=== PATIENT | female | born 1975 | race Caucasian/White ===

== ENCOUNTER 2020-08-19 16:31 | Emergency (ER) | payer BC, SELFPAY ==
[2020-08-19 16:42] VITALS: BP 174/114; PULSE 69; RESP 18; TEMP 36.6; O2SAT 100; BMI 36.6
--- NOTE | 2020-08-19 16:55 | W.ED.SOB ---
Documented by User: Pérez Jacques DO 08/20/20 07:14 HPI - SOB/Dyspnea General: Chief Complaint: Shortness of Breath/Dyspnea Stated Complaint: Sob/ ABD pressure Time Seen by Provider: 08/19/20 16:50 History of Present Illness: HPI Narrative: 45-year-old female complains gastric and right upper quadrant abdominal pain that at times makes it feel difficult or painful to take a deep breath and she feels somewhat short of breath. States it begins after she eats usually resolves within an hour or so she does get acholic stools but no vomiting or diarrhea no hematochezia melena hematemesis or coffee-ground emesis. She is taking omeprazole and occasional take some [id number] Tums with no significant relief of her symptoms. She not had any fever sweats or chills no productive cough. No melanic stools. MD elicited complaint: shortness of breath and cough Onset (ago): week(s) Timing: intermittent Severity: moderate Exacerbating factors: other (Eating) Relieving factors: nothing Associated symptoms: Reports abdominal pain and nausea; Deny chest congestion, chest pain, cough, diaphoresis, dizziness, extremity pain, fever(s), hemoptysis, lightheadedness, myalgias, orthopnea, palpitations, paresthesias, polydipsia, polyuria, rash, sense of impending doom, syncope or vomiting Review of Systems Const: Denies: fever(s) or diaphoresis ENMT: Denies: throat pain, ear or mastoid pain, nasal discharge or nasal congestion Card: Denies: chest pain, palpitations, lightheadedness, syncope or orthopnea Resp: Denies: hemoptysis or chest congestion GI: Reports: abdominal pain and nausea; Denies: vomiting : Denies: flank pain, difficulty voiding, dysuria, urinary frequency or urinary urgency Musc: Denies: extremity pain Skin/Breast: Denies: rash or pruritus Neuro: Denies: dizziness Endo: Denies: polyuria or polydipsia PFSH ED PFSH: Surgical History (Updated 08/19/20 @ 17:04 by Pérez Jacques DO) History of cholecystectomy Physical Exam Const: COMMON NORMALS: no acute distress GENERAL APPEARANCE: cooperative and comfortable ORIENTATION/CONSCIOUSNESS: Yes awake, Yes oriented to person, Yes oriented to place and Yes oriented to time HENMT: COMMON NORMALS: normocephalic, atraumatic and hearing grossly normal bilaterally HEAD & SCALP: normocephalic and atraumatic Neck/C-Spine: COMMON NORMALS: no JVD Resp: COMMON NORMALS: normal respiratory effort, No retractions, No use of accessory muscles and clear to auscultation bilaterally AUSCULTATION: clear to auscultation bilaterally Cardio: COMMON NORMALS: no JVD, regular rate, regular rhythm and No murmurs present (Cardio) RATE: regular rate RHYTHM: regular rhythm GI: COMMON NORMALS: Soft to palpation and No hepatosplenomegaly present AUSCULTATION: Yes normoactive bowel sounds PALPATION: Yes Soft to palpation, No Tenderness to palpation present (GI), No Guarding due to palpation present (GI) and Yes No hepatosplenomegaly present Extremity: COMMON NORMALS: normal to inspection, capillary refill normal, no clubbing, cyanosis or edema, no calf tenderness and no pedal edema Neuro: SENSORIUM/ORIENTATION: Yes oriented to person, Yes oriented to place and Yes oriented to time Skin: COMMON NORMALS: no rashes or lesions noted GENERAL SKIN EXAM: no rashes or lesions noted Course Vital Signs: Vital signs: Vital Signs Temperature 97.9 F 08/19/20 16:42 Pulse Rate 60 08/19/20 20:52 Respiratory Rate 12 08/19/20 20:52 Blood Pressure 143/89 08/19/20 20:52 Pulse Oximetry 100 08/19/20 20:52 MDM - SOB/Dyspnea MDM Narrative: Medical decision making narrative: Care turned over to Dr. Ward at change of shift see his note for final diagnosis and disposition Lab Data: Labs: Lab Results 08/19/20 08/19/20 08/19/20 Range/Units 17:30 17:30 17:30 WBC 9.0 (4.0-10.0) 10^3/ uL RBC 4.10 (4.1-5.3) 10^6/u L Hgb 11.8 (11.5-15.3) g/dL Hct 35.7 L (37.0-47.0) % MCV 87.1 (81-99) fL MCH 28.8 (28.0-34.0) pg MCHC 33.1 (30.0-36.0) g/dL RDW 16.3 H (12.1-15.1) % Plt Count 297 (130-400) 10^3/c mm MPV 12.5 H (7.4-10.4) fL Neut % (Auto) 53.6 % Lymph % (Auto) 37.5 % [place] % (Auto) 6.0 % Eos % (Auto) 1.9 % Baso % (Auto) 0.7 % Neut # (Auto) 4.84 (1.8-7.7) 10^3/u L Lymph # (Auto) 3.4 (0.8-4.8) 10^3/u L [place] # (Auto) 0.5 (0.2-0.9) 10^3/u L Eos # (Auto) 0.2 (0.0-0.8) 10^3/u L Baso # (Auto) 0.1 (0.0-0.1) 10^3/u L Nucleated RBC % (a uto) 0 % Nucleated RBCs # 0.0 /100WBC Sodium 138 (136-145) mmol/L Potassium 3.4 L (3.5-5.1) mmol/L Chloride 106 (98-107) mmol/L Carbon Dioxide 17 L (22-29) mmol/L Anion Gap 18.4 (5-19) BUN 13 (6-20) mg/dL Creatinine 0.7 (0.5-0.9) mg/dL GFR Calculation 90.5 (90-130) mL/min Glucose 86 (65-115) mg/dL Calculated Osmolal ity 285 (285-295) mOsm/k g Calcium 9.4 (8.5-10.5) mg/dL Total Bilirubin 0.2 (0.15-1.2) mg/dL AST 16 (0-32) U/L ALT 31 (0-33) U/L Alkaline Phosphata se 75 (35-105) IU/L Troponin T Baselin e 6 (0-10) ng/L Troponin T 120 Min [place] (0-10) ng/L Delta Troponin T (0-10) ABS# Total Protein 6.7 (6.6-8.7) g/dL Albumin 3.9 (3.5-5.2) g/dL Globulin 2.8 (1.3-4.6) g/dL Lipase 25 (13-60) U/L Urine Color (Yellow) Urine Appearance (CLEAR) Urine pH (5-7) Ur Specific Gravit y (1.005-1.030) Urine Protein (Negative) Urine Glucose (UA) (Normal) Urine Ketones (Negative) Urine Blood (Negative) Urine Nitrate (Negative) Urine Bilirubin (Negative) Urine Urobilinogen (Negative) mg/dL Ur Leukocyte Nancie ase (Negative) Urine RBC (0-2) /hpf Urine WBC (0-5) /hpf Ur Squamous Epith Cells (0-5) /hpf Amorphous Sediment Urine Bacteria (NONE) /hpf 08/19/20 08/19/20 Range/Units 17:35 19:30 WBC (4.0-10.0) 10^3/ uL RBC (4.1-5.3) 10^6/u L Hgb (11.5-15.3) g/dL Hct (37.0-47.0) % MCV (81-99) fL MCH (28.0-34.0) pg MCHC (30.0-36.0) g/dL RDW (12.1-15.1) % Plt Count (130-400) 10^3/c mm MPV (7.4-10.4) fL Neut % (Auto) % Lymph % (Auto) % [place] % (Auto) % Eos % (Auto) % Baso % (Auto) % Neut # (Auto) (1.8-7.7) 10^3/u L Lymph # (Auto) (0.8-4.8) 10^3/u L [place] # (Auto) (0.2-0.9) 10^3/u L Eos # (Auto) (0.0-0.8) 10^3/u L Baso # (Auto) (0.0-0.1) 10^3/u L Nucleated RBC % (a uto) % Nucleated RBCs # /100WBC Sodium (136-145) mmol/L Potassium (3.5-5.1) mmol/L Chloride (98-107) mmol/L Carbon Dioxide (22-29) mmol/L Anion Gap (5-19) BUN (6-20) mg/dL Creatinine (0.5-0.9) mg/dL GFR Calculation (90-130) mL/min Glucose (65-115) mg/dL Calculated Osmolal ity (285-295) mOsm/k g Calcium (8.5-10.5) mg/dL Total Bilirubin (0.15-1.2) mg/dL AST (0-32) U/L ALT (0-33) U/L Alkaline Phosphata se (35-105) IU/L Troponin T Baselin e (0-10) ng/L Troponin T 120 Min [place] 6.57 (0-10) ng/L Delta Troponin T 0.57 (0-10) ABS# Total Protein (6.6-8.7) g/dL Albumin (3.5-5.2) g/dL Globulin (1.3-4.6) g/dL Lipase (13-60) U/L Urine Color Yellow (Yellow) Urine Appearance Clear (CLEAR) Urine pH 5 (5-7) Ur Specific Gravit y 1.010 (1.005-1.030) Urine Protein Neg (Negative) Urine Glucose (UA) Norm (Normal) Urine Ketones 1+ H (Negative) Urine Blood 2+ H (Negative) Urine Nitrate Negative (Negative) Urine Bilirubin Neg (Negative) Urine Urobilinogen Norm (Negative) mg/dL Ur Leukocyte Nancie ase 1+ H (Negative) Urine RBC 15-25 H (0-2) /hpf Urine WBC 10-15 H (0-5) /hpf Ur Squamous Epith Cells 25-40 H (0-5) /hpf Amorphous Sediment Not Reportable Urine Bacteria 2+ H (NONE) /hpf Discharge Plan Discharge Patient Disposition: Home Clinical Impression: Gastritis Qualifiers: Gastritis type: unspecified gastritis Chronicity: unspecified Gastritis bleeding: without bleeding Qualified Code(s): K29.70 - Gastritis, unspecified, without bleeding Condition: Stable Prescriptions: New Prevacid 30 mg capsule,delayed release(DR/EC) 30 mg PO DAILY Qty: 30 RF: 0 Carafate 1 gram tablet 1 g PO Q6H 28 Days Qty: 112 RF: 0 Discharge Orders: Discharge ED (Routine); Ordered 08/19/20 Ordered By: Warren Ward Discharge Diet: Advance as tolerated Discharge Activity: Increase activity as tolerated Patient Instructions: Gastritis (ED) Activity Restrictions/Additional Instructions: Return for worsening pain despite treatment, vomiting liquids or medications, fever greater than 100, blood in the stool or vomitus, other concerning symptoms. Coding Level of Care Code ED Baggage Handling Supervisor for Chg Fwd Exam Comprehensive Documented by User: Warren Ward DO 08/20/20 00:02 HPI - SOB/Dyspnea General: Chief Complaint: Shortness of Breath/Dyspnea Stated Complaint: Sob/ ABD pressure Time Seen by Provider: 08/19/20 16:50 PFSH ED PFSH: Surgical History (Updated 08/19/20 @ 17:04 by Pérez Jacques DO) History of cholecystectomy Course Vital Signs: Vital signs: Vital Signs Temperature 97.9 F 08/19/20 16:42 Pulse Rate 60 08/19/20 20:52 Respiratory Rate 12 08/19/20 20:52 Blood Pressure 143/89 08/19/20 20:52 Pulse Oximetry 100 08/19/20 20:52 MDM - SOB/Dyspnea MDM Narrative: Medical decision making narrative: 45-year-old female checked out to me by Dr. Jacques. She presents with epigastric and right upper quadrant pain. This is an ongoing problem. Pain is improved at this point. Her white blood cell count is 9. Hemoglobin 11.8. Potassium 3.4. Bicarbonate level is low at 17. This is with normal renal function and normal glucose level. She is received a liter of fluid here. She has follow-up with internal medicine/GI on August 31 she had stopped her Prilosec, she said it was making her nauseated. We will try her on some Prevacid, and Carafate. Her CT shows no dilated bile ducts. Normal liver. Normal bowel. No hydronephrosis or pyelonephritis. Normal appendix there is some wall thickening of the stomach, but it is collapsed on the exam and may be artifact. We will treat her for gastritis versus peptic ulcer disease. Lab Data: Labs: Lab Results 08/19/20 08/19/20 08/19/20 Range/Units 17:30 17:30 17:30 WBC 9.0 (4.0-10.0) 10^3/ uL RBC 4.10 (4.1-5.3) 10^6/u L Hgb 11.8 (11.5-15.3) g/dL Hct 35.7 L (37.0-47.0) % MCV 87.1 (81-99) fL MCH 28.8 (28.0-34.0) pg MCHC 33.1 (30.0-36.0) g/dL RDW 16.3 H (12.1-15.1) % Plt Count 297 (130-400) 10^3/c mm MPV 12.5 H (7.4-10.4) fL Neut % (Auto) 53.6 % Lymph % (Auto) 37.5 % [place] % (Auto) 6.0 % Eos % (Auto) 1.9 % Baso % (Auto) 0.7 % Neut # (Auto) 4.84 (1.8-7.7) 10^3/u L Lymph # (Auto) 3.4 (0.8-4.8) 10^3/u L [place] # (Auto) 0.5 (0.2-0.9) 10^3/u L Eos # (Auto) 0.2 (0.0-0.8) 10^3/u L Baso # (Auto) 0.1 (0.0-0.1) 10^3/u L Nucleated RBC % (a uto) 0 % Nucleated RBCs # 0.0 /100WBC Sodium 138 (136-145) mmol/L Potassium 3.4 L (3.5-5.1) mmol/L Chloride 106 (98-107) mmol/L Carbon Dioxide 17 L (22-29) mmol/L Anion Gap 18.4 (5-19) BUN 13 (6-20) mg/dL Creatinine 0.7 (0.5-0.9) mg/dL GFR Calculation 90.5 (90-130) mL/min Glucose 86 (65-115) mg/dL Calculated Osmolal ity 285 (285-295) mOsm/k g Calcium 9.4 (8.5-10.5) mg/dL Total Bilirubin 0.2 (0.15-1.2) mg/dL AST 16 (0-32) U/L ALT 31 (0-33) U/L Alkaline Phosphata se 75 (35-105) IU/L Troponin T Baselin e 6 (0-10) ng/L Troponin T 120 Min [place] (0-10) ng/L Delta Troponin T (0-10) ABS# Total Protein 6.7 (6.6-8.7) g/dL Albumin 3.9 (3.5-5.2) g/dL Globulin 2.8 (1.3-4.6) g/dL Lipase 25 (13-60) U/L Urine Color (Yellow) Urine Appearance (CLEAR) Urine pH (5-7) Ur Specific Gravit y (1.005-1.030) Urine Protein (Negative) Urine Glucose (UA) (Normal) Urine Ketones (Negative) Urine Blood (Negative) Urine Nitrate (Negative) Urine Bilirubin (Negative) Urine Urobilinogen (Negative) mg/dL Ur Leukocyte Nancie ase (Negative) Urine RBC (0-2) /hpf Urine WBC (0-5) /hpf Ur Squamous Epith Cells (0-5) /hpf Amorphous Sediment Urine Bacteria (NONE) /hpf 08/19/20 08/19/20 Range/Units 17:35 19:30 WBC (4.0-10.0) 10^3/ uL RBC (4.1-5.3) 10^6/u L Hgb (11.5-15.3) g/dL Hct (37.0-47.0) % MCV (81-99) fL MCH (28.0-34.0) pg MCHC (30.0-36.0) g/dL RDW (12.1-15.1) % Plt Count (130-400) 10^3/c mm MPV (7.4-10.4) fL Neut % (Auto) % Lymph % (Auto) % [place] % (Auto) % Eos % (Auto) % Baso % (Auto) % Neut # (Auto) (1.8-7.7) 10^3/u L Lymph # (Auto) (0.8-4.8) 10^3/u L [place] # (Auto) (0.2-0.9) 10^3/u L Eos # (Auto) (0.0-0.8) 10^3/u L Baso # (Auto) (0.0-0.1) 10^3/u L Nucleated RBC % (a uto) % Nucleated RBCs # /100WBC Sodium (136-145) mmol/L Potassium (3.5-5.1) mmol/L Chloride (98-107) mmol/L Carbon Dioxide (22-29) mmol/L Anion Gap (5-19) BUN (6-20) mg/dL Creatinine (0.5-0.9) mg/dL GFR Calculation (90-130) mL/min Glucose (65-115) mg/dL Calculated Osmolal ity (285-295) mOsm/k g Calcium (8.5-10.5) mg/dL Total Bilirubin (0.15-1.2) mg/dL AST (0-32) U/L ALT (0-33) U/L Alkaline Phosphata se (35-105) IU/L Troponin T Baselin e (0-10) ng/L Troponin T 120 Min [place] 6.57 (0-10) ng/L Delta Troponin T 0.57 (0-10) ABS# Total Protein (6.6-8.7) g/dL Albumin (3.5-5.2) g/dL Globulin (1.3-4.6) g/dL Lipase (13-60) U/L Urine Color Yellow (Yellow) Urine Appearance Clear (CLEAR) Urine pH 5 (5-7) Ur Specific Gravit y 1.010 (1.005-1.030) Urine Protein Neg (Negative) Urine Glucose (UA) Norm (Normal) Urine Ketones 1+ H (Negative) Urine Blood 2+ H (Negative) Urine Nitrate Negative (Negative) Urine Bilirubin Neg (Negative) Urine Urobilinogen Norm (Negative) mg/dL Ur Leukocyte Nancie ase 1+ H (Negative) Urine RBC 15-25 H (0-2) /hpf Urine WBC 10-15 H (0-5) /hpf Ur Squamous Epith Cells 25-40 H (0-5) /hpf Amorphous Sediment Not Reportable Urine Bacteria 2+ H (NONE) /hpf Discharge Plan Discharge Patient Disposition: Home Clinical Impression: Gastritis Qualifiers: Gastritis type: unspecified gastritis Chronicity: unspecified Gastritis bleeding: without bleeding Qualified Code(s): K29.70 - Gastritis, unspecified, without bleeding Condition: Stable Prescriptions: New Prevacid 30 mg capsule,delayed release(DR/EC) 30 mg PO DAILY Qty: 30 RF: 0 Carafate 1 gram tablet 1 g PO Q6H 28 Days Qty: 112 RF: 0 Discharge Orders: Discharge ED (Routine); Ordered 08/19/20 Ordered By: Warren Ward Discharge Diet: Advance as tolerated Discharge Activity: Increase activity as tolerated Patient Instructions: Gastritis (ED) Activity Restrictions/Additional Instructions: Return for worsening pain despite treatment, vomiting liquids or medications, fever greater than 100, blood in the stool or vomitus, other concerning symptoms. Coding Level of Care Code ED Baggage Handling Supervisor for Chg Fwd Exam Comprehensive
--- NOTE | 2020-08-19 17:01 | ECG_ITS ---
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 Measurements Intervals [place] Rate: 62 P: 46 MT: 235 QRS: -9 QRSD: 102 T: 10 QT: 387 QTc: 393 Interpretive Statements SINUS RHYTHM WITH FIRST DEGREE AV BLOCK MINIMAL VOLTAGE CRITERIA FOR LVH, CONSIDER NORMAL VARIANT [MEETS CRITERIA IN ONE OF: R(aVL), S(V1), R(V5), R(V5/V6)+S(V1)] No previous ECG available for comparison Electronically Signed On 08-21-2020 9:14:26 PHYSICAL THER by Tameka Escobar M.D. [id number]
--- NOTE | 2020-08-19 17:01 | CTR_ITS ---
PROCEDURE INFORMATION: Exam: CT Abdomen And Pelvis With Contrast Exam date and time: 08/19/2020 5:40 PM Age: 45 years old Clinical indication: Abdominal pain; Other: Epigastric; Prior surgery; Surgery type: Gb; Additional info: Abd pain TECHNIQUE: Imaging protocol: Computed tomography of the abdomen and pelvis with intravenous contrast. Radiation optimization: All CT scans at this facility use at least one of these dose optimization techniques: automated exposure control; mA and/or kV adjustment per patient size (includes targeted exams where dose is matched to clinical indication); or iterative reconstruction. Contrast material: OMNI 300; Contrast volume: 95 ml; Contrast route: INTRAVENOUS (IV); COMPARISON: No relevant prior studies available. RADIATION DOSE METRICS: Total DLP (mGy-cm): 1278.22 FINDINGS: Liver: Unremarkable.No mass. Gallbladder and bile ducts: There has been a cholecystectomy. There is no common bile duct dilation. Pancreas: Normal. No ductal dilation. Spleen: Normal. No splenomegaly. Adrenal glands: Normal. No mass. Kidneys and ureters: There is no evidence of hydronephrosis. There is no evidence of renal calcifications. No calculi are identified in the ureters or bladder. Stomach and bowel: There is no evidence of intestinal perforation or obstruction. There is no evidence of colitis/diverticulitis. The gastric wall is thickened but the stomach is also almost completely collapsed in the appearance is compatible probable lack of distension. The loops of small bowel have an appropriate appearance. Appendix: A normal appendix is identified. Intraperitoneal space: Unremarkable. No free air. No significant fluid collection. Vasculature: Unremarkable.No abdominal aortic aneurysm. Lymph nodes: Unremarkable.No enlarged lymph nodes. Urinary bladder: The bladder is decompressed. Reproductive: Unremarkable as visualized. Bones/joints: Unremarkable. No acute fracture. Soft tissues: There is a fat-containing umbilical hernia. CT/CT abdomen pelvis w con* [id number] IMPRESSION: No acute abnormality. Radiation Dose CTDIVOL = (mGy): DLP = 1278.22 (mGy-cm)
--- NOTE | 2020-08-19 17:01 | XRR_ITS ---
PROCEDURE INFORMATION: Exam: XR Chest, 1 View Exam date and time: 08/19/2020 5:04 PM Age: 45 years old Clinical indication: Shortness of breath; Additional info: Dyspnea/cough TECHNIQUE: Imaging protocol: XR of the chest Views: 1 view. COMPARISON: No relevant prior studies available. FINDINGS: Lungs: Unremarkable. No consolidation. Pleural space: Unremarkable. No pleural effusion. No pneumothorax. Heart/Mediastinum: Unremarkable. No cardiomegaly. Bones/joints: No acute abnormality. XR/XR chest 1V portable [id number] IMPRESSION: No acute findings.
--- NOTE | 2020-08-19 17:10 | PC.NURSE ---
X-Ray at bedside.
[2020-08-19 17:33] VITALS: PULSE 77
[2020-08-19] MEDS: iohexol 300 mg/mL 100 mL Btl IV (17:41)
[2020-08-19 18:12] LABS: Basophils # 0.1 10^3/uL (0.0-0.1); Basophils % 0.7 %; Eosinophils # 0.2 10^3/uL (0.0-0.8); Eosinophils % 1.9 %; Hematocrit 35.7 % (37.0-47.0); Hemoglobin 11.8 g/dL (11.5-15.3); Lymphocytes # 3.4 10^3/uL (0.8-4.8); Lymphocytes % 37.5 %; Mean Corpuscular HGB Conc 33.1 g/dL (30.0-36.0); Mean Corpuscular Hemoglobin 28.8 pg (28.0-34.0); Mean Corpuscular Volume 87.1 fL (81-99); Mean Platelet Volume 12.5 fL (7.4-10.4); Monocytes # 0.5 10^3/uL (0.2-0.9); Neutrophils # 4.84 10^3/uL (1.8-7.7); Neutrophils % 53.6 %; Nucleated Red Blood Cells % 0 %; Platelet Count 297 10^3/cmm (130-400); Red Cell Distribution Width 16.3 % (12.1-15.1)
[2020-08-19] MEDS: sodium chloride 0.9% 1,000 ML 999 ML IV (18:12)
[2020-08-19 18:15] LABS: Add Urine Microscopic? YES; Bilirubin Urine Neg (Negative); Blood Urine 2+ (Negative); Glucose Urine UA Norm (Normal); Ketones Urine 1+ (Negative); Leukocyte Esterase Urine 1+ (Negative); Nitrate Urine Negative (Negative); Protein Urine Neg (Negative); Urine Appearance Clear (CLEAR); Urine Color Yellow (Yellow); Urobilinogen Urine Norm (Negative); pH Urine 5 (5-7)
[2020-08-19 18:23] LABS: Bacteria Urine 2+ /hpf; RBC Urine 15-25 /hpf (0-2); Squamous Epithelial Cell Urine 25-40 /hpf (0-5)
[2020-08-19 18:24] LABS: Add Urine Culture? No
[2020-08-19 18:33] LABS: Alanine Aminotransferase 31 U/L (0-33); Albumin Level 3.9 g/dL (3.5-5.2); Alkaline Phosphatase 75 IU/L (35-105); Anion Gap 18.4 (5-19); Aspartate Amino Transferase 16 U/L (0-32); Blood Urea Nitrogen 13 mg/dL (6-20); Calcium 9.4 mg/dL (8.5-10.5); Carbon Dioxide 17 mmol/L (22-29); Chloride 106 mmol/L (98-107); Globulin 2.8 g/dL (1.3-4.6); Glomerular Filtration Rate 90.5 mL/min (90-130); Glucose 86 mg/dL (65-115); Lipase 25 U/L (13-60); Osmolality Calculated 285 mOsm/kg (285-295); Potassium 3.4 mmol/L (3.5-5.1); Sodium 138 mmol/L (136-145); Total Bilirubin 0.2 mg/dL (0.15-1.2); Total Protein 6.7 g/dL (6.6-8.7); Troponin(5th) Baseline 6 ng/L (0-10)
--- NOTE | 2020-08-19 19:01 | ECG_ITS ---
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 Measurements Intervals [place] Rate: 58 P: 58 MS: 225 QRS: -9 QRSD: 99 T: 8 QT: 413 QTc: 408 Interpretive Statements SINUS BRADYCARDIA WITH FIRST DEGREE AV BLOCK Compared to ECG 08/19/2020 17:06:15 Sinus rhythm no longer present Electronically Signed On 08-21-2020 9:23:59 SECOND TIME WORKER by Tameka Escobar M.D. [id number]
[2020-08-19 19:11] VITALS: BP 128/81; PULSE 62; RESP 13; O2SAT 100
[2020-08-19 20:00] VITALS: BP 124/86; PULSE 64; RESP 19; O2SAT 100
[2020-08-19 20:06] LABS: Troponin 5 2HR 6.57 ng/L (0-10); Troponin 5 2HR Delta 0.57 ABS# (0-10)
[2020-08-19] MEDS: pantoprazole DR 40 mg Tablet PO (20:17)
[2020-08-19] MEDS: sucralfate 1 gm Tablet PO (20:17)
[2020-08-19 20:52] VITALS: BP 143/89; PULSE 60; RESP 12; O2SAT 100
== END 2020-08-19 20:53 | disposition home or self-care (01) ==
PROVIDERS: Family Medicine; Emergency Provider Emergency Medicine
DX: K29.70 Gastritis, unspecified, without bleeding (principal)
CPT/HCPCS: 12345; 36415; 71045; 74177; 80053; 81001; 83690; 84484; 85025; 93005; 96361; 96374; 99283; 99284; J7030; Q9967

== ENCOUNTER → 2020-08-31 14:02 | Outpatient (BNVA) | payer BC, SELFPAY | PROVIDERS: Visit Provider Internal Medicine | DX: Z01.812 Encounter for preprocedural laboratory examination (principal); R10.13 Epigastric pain | CPT/HCPCS: 87635 ==

== ENCOUNTER 2020-09-02 08:28 | Day surgery (SDC) | payer BC, SELFPAY ==
--- NOTE | 2020-09-02 08:36 | W.PM.OPSUD ---
Surgery/Procedure H&P Update DATE OF PROCEDURE: September 02, 2020 DATE H&P PERFORMED: 08/31/20 PLANNED PROCEDURE: Operation Date: 09/02/20 09:45 Proposed Procedures p D 43306 r10.13(Not Applicable) - Luis Eduardo Hernandez MD
--- NOTE | 2020-09-02 08:57 | ANES.PREANE2 ---
Pre-Anesthetic Assessment Pre-Anesthetic Assessment: Height/Weight: Height 1.57 m Weight 89.811 kg Preop Diagnosis: EGD Proposed Procedure: Operation Date: 09/02/20 09:45 Proposed Procedures p EGD 05364 r10.13(Not Applicable) - Luis Eduardo Hernandez MD Was Beta Amy taken within 24 hours: N/A Social: Social History: Tobacco and No alcohol Exam: Pre-Anes Outpt Exam: alert, oriented x 3, clear to auscultation bilaterally and regular rate & rhythm Airway: Submandibular: WNL Cervical ROM: WNL MP: 2 Dentition: False Pulmonary: Pulmonary: COPD GI: Comments: abd pain Metabolic: Metabolic: Morbid obesity Anesthetic Plan: ASA status: 3 Anesthesia: MAC Risk of > 500 ml blood loss (7ml/kg in children): No PFSH Anesthesia PFSH: Surgical History (Updated 08/31/20 @ 13:[address]) History of cholecystectomy Family History (Updated 08/31/20 @ 13:[address]) Grandmother Diabetes Heart disease Social History (Updated 08/31/20 @ 13:19 by Veronica Walker, CT) Smoking and tobacco status: current every day smoker Alcohol intake: never Adopted: No Marital status: Number of children: 3 service: No History of recent travel: No Current gender identity: Female Data Anesthesia Cardiac Studies: No Data to Display
[2020-09-02 08:59] VITALS: BP 144/85; PULSE 73; RESP 18; TEMP 36.4; O2SAT 99
[2020-09-02] MEDS: sodium chloride 0.9% 1,000 ML 30 ML IV (09:08)
[2020-09-02 09:51] VITALS: BP 144/114; PULSE 92; RESP 18; TEMP 36.4; O2SAT 99
[2020-09-02 10:18] VITALS: BP 136/97; PULSE 55; RESP 16; O2SAT 100
[2020-09-05 07:30] LABS: H. Pylori / CLO Test Positive
== END 2020-09-02 10:37 | disposition home or self-care (01) ==
PROVIDERS: PCP Physician Assistant Medical; Visit Provider Internal Medicine
PROC: 0DJ08ZZ Inspection of Upper Intestinal Tract, Via Natural or Artificial Opening Endoscopic (ICD-10-PCS; CPT 43235; principal; 2020-09-02 09:45)
DX: R10.13 Epigastric pain (principal); K29.71 Gastritis, unspecified, with bleeding; K29.80 Duodenitis without bleeding; K26.9 Duodenal ulcer, unspecified as acute or chronic, without hemorrhage or perforation; J44.9 Chronic obstructive pulmonary disease, unspecified; E66.01 Morbid (severe) obesity due to excess calories; Z68.36 Body mass index [BMI] 36.0-36.9, adult; F17.210 Nicotine dependence, cigarettes, uncomplicated
CPT/HCPCS: 12345; 43239; 87077; J2704; J3490; J7030

== ENCOUNTER → 2024-07-07 11:56 | Outpatient (BNVA) | payer OTHER, SELFPAY | PROVIDERS: PCP Registered Nurse; Visit Provider Registered Nurse | DX: Z91.018 Allergy to other foods (principal); E53.8 Deficiency of other specified B group vitamins; F41.9 Anxiety disorder, unspecified | CPT/HCPCS: 80053; 82607; 86003; 86008 ==

== ENCOUNTER → 2025-07-20 09:38 | Outpatient (BNVA) | payer OTHER, SELFPAY | PROVIDERS: PCP Registered Nurse; Visit Provider Registered Nurse | DX: Z91.018 Allergy to other foods (principal); F32.A Depression, unspecified | CPT/HCPCS: 80053; 85025; 86003; 86008 ==